=== PATIENT | female | born 1985 | race African-American/Black ===

== ENCOUNTER 2018-12-02 10:44 | Emergency (ER) | payer BC ==
[~2018-12-02] VITALS: Ht 170.2 cm; Wt 101.8 kg
[2018-12-02 10:47] VITALS: Ht 170.2 cm; Wt 101.8 kg
[2018-12-02] MEDS ORDERED: PSYL1040 PO (11:37)
[2018-12-02] MEDS ORDERED: HC30CR25 TOP (11:37)
--- NOTE | 2018-12-02 11:51 | ERD ---
ER Documentation Chief Complaint Chief Complaint abcess on lt buttock x 1 day HPI Patient is a 33-year-old female presenting with painful lesion on her rectum. Patient stated she noticed it about 3 days ago and has been painful to sit down which she says is a 7 out of 10. Patient states there is no blood in her stool, blood in her urine, patient denies fever chills back pain. Patient states this is never happened before and she has not taken any medication to try to alleviate the pain. Patient states the pain is exacerbated when she tries to pass stool. ROS All systems reviewed and are negative except as per history of present illness. 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 Normal bowel sounds Skin: No petechiae or rashes Back: No midline or flank tenderness Ext: No cyanosis, or edema GI: 1cm thrombosed intact hemorrhoid present left lateral rectum. No signs of drainage. No signs of infection. Procedures/MDM ED course: Visual inspection of the rectum. JONH Stephenson was my solution design and analysis manager during the physical examination. The patient was stable throughout the ED course. The patient and/or family informed of laboratory and diagnostic imaging results throughout the ED course. Medical decision makin-year-old female presenting with pain in her rectum x3 days. Patient's physical exam noted a small thrombosed hemorrhoid on the left lateral side of her rectum. Patient has no fever chills night sweats there is no signs of abscess, no drainage from the lesion, history is most consistent for thrombosed hemorrhoid. Patient was advised to take Metamucil and use the hydrocortisone topical. Patient was advised that if this persists and does not get better with conservative treatment that she would need to see a specialist to have it taken care of. Patient states she has a primary care doctor and she was advised that she needs to follow-up in 1 to 2 days regarding this visit. At this time I have low suspicion for abscess prolapsed rectum, cellulitis, infection. The patient has good follow-up care and I feel comfortable with discharging her with a prescription for Metamucil and hydrocortisone topical. The patient had no further questions upon discharge and plans to follow-up in the next 1 to 2 days with her primary care provider regarding this visit. She was advised if symptoms worsen if she experiences pain bleeding fever body chills to return to ER immediately. Prescription for home: Metamucil Hydrocortisone topical Discharge: At this time, patient is stable for discharge and outpatient management. I have instructed the patient to follow-up with his\her primary care physician in 1 to 2 days. I have discussed with the patient the possibility of needing to see a specialist for further work-up and imaging studies if symptoms persist. I have instructed the patient to promptly return to the ER for any new or worsening symptoms including increased pain, fever, nausea, vomiting, weakness or LOC. The patient and\or family expressed understanding of and agreement with this plan. All questions were answered. Home care instructions were provided. Disclaimer: Inadvertent spelling and grammatical errors are likely due to EHR\dictation software use and do not reflect on the overall quality of patient care. Also, please note that the electronic time recorded on the note does not necessarily reflect the actual time of the patient encounter. Departure Diagnosis: Primary Impression: Thrombosed external hemorrhoid Condition: Stable Patient Instructions: Hemorrhoids Additional Instructions: Call your primary care doctor TOMORROW for an appointment during the next 1 WEEK.Tell the medical office secretary that you were referred from this facility. See the doctor sooner or return here if your condition worsens before your appointment time. May need to get into a GI specialist if hemorrhoid does not get better with treatment. FARHAN CALDWELL PA-C Dec 02, 2018 11:51
== END 2018-12-02 11:49 | disposition home or self-care (01) ==
LOC: FTE 10:44
DX: K64.5 Perianal venous thrombosis (principal); F17.210 Nicotine dependence, cigarettes, uncomplicated
CPT/HCPCS: 99284